=== PATIENT | female | born 1995 | race Caucasian/White ===

== ENCOUNTER 2020-04-08 17:00 | Emergency (ER) | payer SELFPAY ==
[~2020-04-08] VITALS: Ht 154.9 cm; Wt 60.0 kg
[2020-04-08 17:03] VITALS: BP 123/73
== END 2020-04-08 18:55 | disposition left against medical advice (07) ==
LOC: ER 17:00
DX: R51.9 Headache, unspecified (principal); Z53.21 Procedure and treatment not carried out due to patient leaving prior to being seen by health care provider